=== PATIENT | male | born 1945 | race Caucasian/White ===

== ENCOUNTER 2018-09-13 14:30 | Inpatient (IN) ==
[2018-09-13] MEDS ORDERED: Naloxone 0.4 MG/ML INJ IVP PRN (17:47)
[2018-09-13] MEDS ORDERED: Ondansetron ODT 4 MG TAB.RAPDIS SL PRN (17:47)
--- NOTE | 2018-09-13 17:47 | Acute Care Surgery H&P ---
<Butch Kirkland - Last Filed: 09/13/18 17:55> Date of Encounter: 09/13/18 Time of Encounter: 17:56 Assessment and Plan (1) Perforation of sigmoid colon due to diverticulitis Current Visit: Yes Status: Acute -Patient is a 73-year-old male with no significant past medical history who was admitted from outside hospital for a perforated sigmoid diverticulitis -Patient reports significant abdominal pain starting Friday at 12 PM, but denies associated nausea, vomiting, diarrhea, constipation, melena, or hematochezia -Pain persisted through the weekend, but he does report improvement in his pain today prior to presenting to the emergency department -At outside hospital emergency department patient was hemodynamically stable with generally unremarkable lab workup: -Sodium 138, potassium 4.2, creatinine 1.06, LFTs within range, lactic acid 1.6, INR 1.1, WBC count 8.9, hemoglobin 16.2 -CT abdomen and pelvis with IV contrast suggested perforated sigmoid diverticulitis with abnormal fluid and gas collections in the right lower pelvis. There was also large free intraperitoneal air -Clinically however, the patient appears to be comfortable, he does have tenderness to palpation of his abdomen but he is able to cough without much discomfort. His vital signs and labs are not concerning at this time. -Discussed with patient and family member regarding surgical versus expectant management for his condition and the decision was made to initiate IV antibiotics and closely monitor patient's clinical status. -We will hold off surgery at this time due to lack of overtly concerning clinical findings on physical exam and lab workup -If patient were to have any change in his clinical status, we will reevaluate the need for surgery -We will repeat labs in the morning and repeat CT scan in a few days -We will start bowel rest and keep the patient NPO except ice chips -IVF and pain control -DVT prophylaxis History of Present Illness Chief complaint: abdominal pain HPI: Mr. Baez is a 73 year old male with no significant past medical history who presented to outside hospital with chief complaint of abdominal pain. This pain at began on 09/11/2018 at approximately 12 PM. Described as severe and generalized in nature. No associated nausea, vomiting, diarrhea, constipation, hematochezia, or melena. Patient reports that it was difficult for him to ambulate or attempt to lay down because the pain. This persisted through the next day, but did decrease on day of admission as he states that he was able to go on a morning walk with his . Due to the persistent abdominal pain patient decided to be evaluated at the emergency department as he was worried ab out appendicitis. Upon arrival to the emergency department patient was hemodynamically stable with vital signs: blood pressure 129/88, pulse 86, temp 98.3. His lab workup was generally unremarkable with normal electrolytes and LFTs and a lactic acid of 1.6. CBC was generally unremarkable with a white blood cell count of 8.93 and hemoglobin of 16.2. A CT abdomen and pelvis was performed with findings suggestive for perforated sigmoid diverticulitis with abnormal fluid and gas collection in the right lower pelvis with large free intraperitoneal air. Patient was offered transfer to [facility] but elected to be transferred to [facility] instead. Upon arrival patient is resting comfortably in bed, he is in no acute distress. There is tenderness to palpation of his abdomen with moderate pressure. He reports that his pain has slightly improved since receiving pain medications in the emergency department currently at a 3-4. CT images from outside hospital were uploaded to the PACS and reviewed by the acute care surgery team. Patient denies any fevers, chills, chest pain, shortness breath, abdominal pain, nausea, vomiting, diarrhea, hematochezia, melena, or any recent history of constipation. Medications and Allergies Allergy/AdvReac Type Severity Reaction Status Date / Time No Known Allergies Allergy Verified 09/13/18 17:26 Review of Systems All systems PM: The remainder of the systems were reviewed and are negative - Constitutional no chills, no fever(s) - Cardiovascular no chest pain - Respiratory no dyspnea - Gastrointestinal abdominal pain, no constipation, no diarrhea, no hematochezia, no melena, no nausea, no vomiting - Genitourinary no dysuria General Surgery Exam Reviewed from outside hospital - General physical appearance well developed, well nourished - Eyes PERRL, normal ocular movement - Neck trachea midline, no venous distension - Respiratory normal expansion, normal respiratory effort - Cardiovascular Cardiovascular exam: Present: RRR - Abdomen Abdomen general surgery: Present: tender, guarding Abdominal Tenderness: Present: diffusely - Integumentary Integumentary general surgery: Present: warm and dry - Musculoskeletal Present: normal posture - Psychiatric Psychiatric general surgery: Present: A&Ox3 Results - Labs All other labs normal. <Salvador,Mario M - Last Filed: 09/14/18 06:11> Date of Encounter: 09/13/18 History of Present Illness HPI: Mr. Baez is a 73 year old male Review of Systems All systems PM: The remainder of the systems were reviewed and are negative General Surgery Exam Initial Vital Signs Temp Pulse Resp BP Pulse Ox 98.0 F 66 16 135/88 98 09/13/18 16:45 09/13/18 16:45 09/13/18 16:45 09/13/18 16:45 09/13/18 16:45 Results - Labs 09/14/18 03:15 09/14/18 03:15 Abnormal lab results PT 14.1 Seconds (9.4-12.1) H 09/14/18 03:15 Phosphorus 2.4 mg/dL (2.7-4.5) L 09/14/18 03:15 Diabetes panel 09/14/18 Range/Units 03:15 Sodium 139 (136-145) mEq/L Potassium 4.0 (3.5-5.1) mEq/L Chloride 106 (98-107) mEq/L Carbon Dioxide 23 (23-29) mEq/L BUN 14 (8-23) mg/dL Creatinine 0.90 (0.70-1.30) mg/dL Glucose 92 (70-105) mg/dL Calcium 9.4 (8.6-10.3) mg/dL AST 15 (13-39) Units/L ALT 20 (7-52) Units/L Alkaline Phosphatase 68 (34-104) Units/L Albumin 3.8 (3.5-5.7) g/dL Calcium panel 09/14/18 Range/Units 03:15 Calcium 9.4 (8.6-10.3) mg/dL Phosphorus 2.4 L (2.7-4.5) mg/dL Albumin 3.8 (3.5-5.7) g/dL Pituitary panel 09/14/18 Range/Units 03:15 Sodium 139 (136-145) mEq/L Potassium 4.0 (3.5-5.1) mEq/L Chloride 106 (98-107) mEq/L Carbon Dioxide 23 (23-29) mEq/L BUN 14 (8-23) mg/dL Creatinine 0.90 (0.70-1.30) mg/dL Glucose 92 (70-105) mg/dL Calcium 9.4 (8.6-10.3) mg/dL Adrenal panel 09/14/18 Range/Units 03:15 Sodium 139 (136-145) mEq/L Potassium 4.0 (3.5-5.1) mEq/L Chloride 106 (98-107) mEq/L Carbon Dioxide 23 (23-29) mEq/L BUN 14 (8-23) mg/dL Creatinine 0.90 (0.70-1.30) mg/dL Glucose 92 (70-105) mg/dL Calcium 9.4 (8.6-10.3) mg/dL Total Bilirubin 1.0 (0.3-1.0) mg/dL AST 15 (13-39) Units/L ALT 20 (7-52) Units/L Alkaline Phosphatase 68 (34-104) Units/L Albumin 3.8 (3.5-5.7) g/dL All other labs normal. - Attending Attestation I examined this patient and my medical decision-making was reviewed with the Resident Physician. I agree with the documented findings, disposition and treatment plan as described except to the extent set forth below. I personally reviewed the above assessment and evaluation with the resident and was pleasant and evaluation. Patient states that he been having some right lower quadrant abdominal pain starting Friday afternoon. He denies any nausea or vomiting and states that the pain was intermittent in nature but somewhat sharp. The pain was severe on Friday but then started to decrease in severity. He was still able to tolerate eating foods and did notice some distention on Friday which level and did not increase over the next couple of days. In fact he states that the amount of distention seems to have decreased. He was having regular bowel movements without any rectal bleeding but because of this persistent right lower quadrant abdominal pain he presented to [facility] for further evaluation. Of note; he decided to walk with his for approximately a mile prior to presenting to the emergency room because of the persistent pain. CT scan evaluation at [facility] is demonstrated abundant free air and fluid in the pelvis concerning for perforation. The cause of the CT scan findings the physician at the presenting hospital felt that he would likely need an painter ski edge which was not present at their hospital and subsequently the patient was transferred to [facility]. The patient states that his pain currently is better but he did have pain medication prior to arrival. He denies any history of fever or chills and denies any nausea vomiting. He is tympanitic on examination has some mild to moderate pain to moderate palpation right lower quadrant but no rigidity or guarding. Laboratory studies from [facility] are normal clearing a normal count, hemoglobin, and platelets. His BMP is normal as well. Personally reviewed the CT scan images and report which is show an abundant amount of free air in the anterior abdomen and some diverticulosis with stranding in the sigmoid colon. There is an approximate 3 cm fluid collection with some air but no rind thickening of the rim. The pa tient denied or contrast. Given the patient's history of some severe pain on Friday but decreasing pain since then and still able to ambulate and walk without difficulty (he states actually that is ability to ambulate and walk improved around Friday into Friday) I think that this perforation did occur and then sealed in he no longer has an active perforation or spillage. I think it would be appropriate to give him a trial of IV antibiotics and close observation with an repeat interval CT scan to prove this. I explained to the patient we will follow his vital signs very carefully and his laboratory studies to ensure that he is improving as expected. The patient and family member agree with the above plan.
[2018-09-13] MEDS ORDERED: OXYCODONE Oral CONC 10 MG/0.5 ML ORAL.SYG SL PRN (17:49)
[2018-09-13] MEDS ORDERED: MORPHINE SUL Oral CONC 10 MG/0.5 ML ORAL.SYG SL PRN (17:50)
[2018-09-13] MEDS: 0.9 % Sodium Chloride 1,000 ML IVC SCH (20:38)
[2018-09-13] MEDS: MetroNIDAZOLE 500 MG/100 ML 500 MG/100 ML BAG IVPB SCH (20:38)
[2018-09-13] MEDS: *HR* Heparin 5,000 UNIT/ML VIAL SQ SCH (20:45)
[2018-09-13] MEDS: Levofloxacin 750 MG/150 ML 750 MG/150 ML BAG IVPB SCH (22:03)
[2018-09-14 03:56] LABS: Basophils % 0.4 %; Eosinophils # 0.4 K/mcL (0.0-0.6); Eosinophils % 5.3 %; Hematocrit 44.3 % (37.5-50.1); Hemoglobin 14.9 g/dL (12.9-16.9); Immature Granulocytes % 0.1 % (0-4); Lymphocytes # 1.3 K/mcL (0.6-4.6); Lymphocytes % 17.5 %; Mean Corpuscular HGB Conc 33.6 g/dL (31.6-35.5); Mean Corpuscular Hemoglobin 31.7 pg (28.0-33.3); Mean Corpuscular Volume 94.3 fL (83.0-100.0); Mean Platelet Volume 10.2 fL (9.4-12.4); Monocytes # 0.6 K/mcL (0.0-1.3); Monocytes % 7.7 %; Neutrophils # 5.1 K/mcL (1.6-8.9); Platelet Count 190 K/mcL (140-400)
[2018-09-14 04:01] LABS: INR 1.3; Prothrombin Time 14.1 Seconds (9.4-12.1)
[2018-09-14 04:14] LABS: Alanine Aminotransferase 20 Units/L (7-52); Albumin 3.8 g/dL (3.5-5.7); Albumin/Globulin Ratio 1.5 (1.1-2.2); Alkaline Phosphatase 68 Units/L (34-104); Aspartate Amino Transferase 15 Units/L (13-39); BUN/Creatinine Ratio 16 (6-26); Blood Urea Nitrogen 14 mg/dL (8-23); Calcium 9.4 mg/dL (8.6-10.3); Carbon Dioxide 23 mEq/L (23-29); Chloride 106 mEq/L (98-107); Globulin 2.6 g/dL (2.4-3.5); Glucose 92 mg/dL (70-105); Magnesium 1.9 mg/dL (1.6-2.6); Osmolality,Calculated 288 (280-300); Phosphorous 2.4 mg/dL (2.7-4.5); Sodium 139 mEq/L (136-145); Total Protein 6.4 g/dL (6.4-8.9); eGFR For Non-African Americans > 60 (> 60)
[2018-09-14] MEDS: 0.9 % Sodium Chloride 1,000 ML IVC SCH ×3 (04:15→21:46)
[2018-09-14] MEDS: MetroNIDAZOLE 500 MG/100 ML 500 MG/100 ML BAG IVPB SCH ×3 (04:15→20:20)
[2018-09-14] MEDS: *HR* Heparin 5,000 UNIT/ML VIAL SQ SCH ×3 (05:17→21:45)
--- NOTE | 2018-09-14 08:34 | AcuteCareSurgery Progress Note ---
<Butch Kirkland N - Last Filed: 09/14/18 08:32> Date of Encounter: 09/14/18 Time of Encounter: 08:32 - Assessment and Plan (1) Perforation of sigmoid colon due to diverticulitis Current Visit: Yes Status: Acute -Patient is a 73-year-old male with no significant past medical history who was admitted from outside hospital for a perforated sigmoid diverticulitis -Pain improved since admission, currently at a 1 out of 10. Patient did not require PRN pain medications overnight -Plan for repeat CT scan in a few days -We will start clear liquid diet today -Continue IV fluids and PRN pain medications -DVT prophylaxis Subjective Narrative: Patient seen and examined at bedside this morning. He reports minimal abdominal pain rating at a 1 out of 10. States that he is unable to get out of bed without difficulty and has not required any as needed pain medications overnight. Objective Vital Signs - Last 8 Hours Temp Pulse Resp BP Pulse Ox 09/14/18 06:59 98.3 F 71 16 124/82 96 09/14/18 04:00 98.4 F 68 16 124/72 96 Intake and Output 09/13/18 09/14/18 09/14/18 23:59 07:59 15:59 Intake Total 100 / 100 1250 / 1250 Balance 100 / 100 1250 / 1250 Intake: IV Fluids 100 / 100 1250 / 1250 0.9 % Sodium Chloride 1,000 ML 1000 / 1000 @ 125 mls/hr IVC .Q8H [facility] Rx#: [id number] Levaquin Premix 750mg/150 mL 150 / 150 750 mg In 150 ml @ 100 mls/hr IVPB Q24H [facility] Rx#:[id number] Flagyl Premix 500 MG/100 ML 500 100 / 100 100 / 100 mg In 100 ml @ 100 mls/hr IVPB Q8H [facility] Rx#:[id number] Oral 0 / 0 Other: Meal DINNER NPO Percent of Meal Consumed 0% Stool Size Moderate # Voids 1 1 # Bowel Movements 1 Weight 81.647 kg Blood Glucose* 83 - General physical appearance well developed, well nourished - Eyes PERRL, normal ocular movement - ENT normal pinna, normal nares - Neck Neck exam: trachea midline, no venous distension - Respiratory normal expansion, normal respiratory effort - Cardiovascular Cardiovascular exam: Present: RRR - Abdomen Abdomen: Present: bowel sounds present, soft, tender (Mild tenderness on moderate palpation) - Labs 09/14/18 03:15 09/14/18 03:15 Diabetes panel 09/14/18 Range/Units 03:15 Sodium 139 (136-145) mEq/L Potassium 4.0 (3.5-5.1) mEq/L Chloride 106 (98-107) mEq/L Carbon Dioxide 23 (23-29) mEq/L BUN 14 (8-23) mg/dL Creatinine 0.90 (0.70-1.30) mg/dL Glucose 92 (70-105) mg/dL Calcium 9.4 (8.6-10.3) mg/dL AST 15 (13-39) Units/L ALT 20 (7-52) Units/L Alkaline Phosphatase 68 (34-104) Units/L Albumin 3.8 (3.5-5.7) g/dL Calcium panel 09/14/18 Range/Units 03:15 Calcium 9.4 (8.6-10.3) mg/dL Phosphorus 2.4 L (2.7-4.5) mg/dL Albumin 3.8 (3.5-5.7) g/dL Pituitary panel 09/14/18 Range/Units 03:15 Sodium 139 (136-145) mEq/L Potassium 4.0 (3.5-5.1) mEq/L Chloride 106 (98-107) mEq/L Carbon Dioxide 23 (23-29) mEq/L BUN 14 (8-23) mg/dL Creatinine 0.90 (0.70-1.30) mg/dL Glucose 92 (70-105) mg/dL Calcium 9.4 (8.6-10.3) mg/dL Adrenal panel 09/14/18 Range/Units 03:15 Sodium 139 (136-145) mEq/L Potassium 4.0 (3.5-5.1) mEq/L Chloride 106 (98-107) mEq/L Carbon Dioxide 23 (23-29) mEq/L BUN 14 (8-23) mg/dL Creatinine 0.90 (0.70-1.30) mg/dL Glucose 92 (70-105) mg/dL Calcium 9.4 (8.6-10.3) mg/dL Total Bilirubin 1.0 (0.3-1.0) mg/dL AST 15 (13-39) Units/L ALT 20 (7-52) Units/L Alkaline Phosphatase 68 (34-104) Units/L Albumin 3.8 (3.5-5.7) g/dL <Min Hancock - Last Filed: 09/14/18 15:22> Date of Encounter: 09/14/18 Objective Vital Signs - Last 8 Hours Temp Pulse Resp BP Pulse Ox 09/14/18 14:05 98.1 F 83 16 141/90 98 09/14/18 11:05 98.3 F 72 16 118/77 96 09/14/18 08:30 96 Intake and Output 09/13/18 09/14/18 09/14/18 23:59 07:59 15:59 Intake Total 100 / 100 1250 / 1250 Balance 100 / 100 1250 / 1250 Intake: IV Fluids 100 / 100 1250 / 1250 0.9 % Sodium Chloride 1,000 ML 1000 / 1000 @ 125 mls/hr IVC .Q8H [facility] Rx#: [id number] Levaquin Premix 750mg/150 mL 150 / 150 750 mg In 150 ml @ 100 mls/hr IVPB Q24H [facility] Rx#:[id number] Flagyl Premix 500 MG/100 ML 500 100 / 100 100 / 100 mg In 100 ml @ 100 mls/hr IVPB Q8H [facility] Rx#:[id number] Oral 0 / 0 Other: Meal DINNER NPO Percent of Meal Consumed 0% Stool Size Moderate # Voids 1 1 1 # Bowel Movements 1 1 Weight 81.647 kg Blood Glucose* 83 83 - Labs 09/14/18 03:15 09/14/18 03:15 Diabetes panel 09/14/18 Range/Units 03:15 Sodium 139 (136-145) mEq/L Potassium 4.0 (3.5-5.1) mEq/L Chloride 106 (98-107) mEq/L Carbon Dioxide 23 (23-29) mEq/L BUN 14 (8-23) mg/dL Creatinine 0.90 (0.70-1.30) mg/dL Glucose 92 (70-105) mg/dL Calcium 9.4 (8.6-10.3) mg/dL AST 15 (13-39) Units/L ALT 20 (7-52) Units/L Alkaline Phosphatase 68 (34-104) Units/L Albumin 3.8 (3.5-5.7) g/dL Calcium panel 09/14/18 Range/Units 03:15 Calcium 9.4 (8.6-10.3) mg/dL Phosphorus 2.4 L (2.7-4.5) mg/dL Albumin 3.8 (3.5-5.7) g/dL Pituitary panel 09/14/18 Range/Units 03:15 Sodium 139 (136-145) mEq/L Potassium 4.0 (3.5-5.1) mEq/L Chloride 106 (98-107) mEq/L Carbon Dioxide 23 (23-29) mEq/L BUN 14 (8-23) mg/dL Creatinine 0.90 (0.70-1.30) mg/dL Glucose 92 (70-105) mg/dL Calcium 9.4 (8.6-10.3) mg/dL Adrenal panel 09/14/18 Range/Units 03:15 Sodium 139 (136-145) mEq/L Potassium 4.0 (3.5-5.1) mEq/L Chloride 106 (98-107) mEq/L Carbon Dioxide 23 (23-29) mEq/L BUN 14 (8-23) mg/dL Creatinine 0.90 (0.70-1.30) mg/dL Glucose 92 (70-105) mg/dL Calcium 9.4 (8.6-10.3) mg/dL Total Bilirubin 1.0 (0.3-1.0) mg/dL AST 15 (13-39) Units/L ALT 20 (7-52) Units/L Alkaline Phosphatase 68 (34-104) Units/L Albumin 3.8 (3.5-5.7) g/dL - Attending Attestation I examined this patient and my medical decision-making was reviewed with the Resident Physician. I agree with the documented findings, disposition and treatment plan as described except to the extent set forth below. The patient is seen and evaluated on morning rounds with the acute care surgery team. His abdominal examination is negative. He has good bowel sounds. We will advance him to clear liquids. He is not taking any pain medicine. He does have a fair amount of free air from what appears to be perforated diverticular disease. Continue IV antibiotic. We will plan follow-up CAT scan of the abdomen on Friday Min Hancock MD FACS
[2018-09-14] MEDS: Levofloxacin 750 MG/150 ML 750 MG/150 ML BAG IVPB SCH (20:20)
[2018-09-15] MEDS: MetroNIDAZOLE 500 MG/100 ML 500 MG/100 ML BAG IVPB SCH ×3 (05:16→20:14)
[2018-09-15] MEDS: *HR* Heparin 5,000 UNIT/ML VIAL SQ SCH ×3 (05:17→21:10)
[2018-09-15] MEDS ORDERED: Isovue-370 500 ML BOTTLE IVP ONE (08:00)
--- NOTE | 2018-09-15 08:07 | AcuteCareSurgery Progress Note ---
<Butch Kirkland N - Last Filed: 09/15/18 08:03> Date of Encounter: 09/15/18 Time of Encounter: 08:04 - Assessment and Plan (1) Perforation of sigmoid colon due to diverticulitis Current Visit: Yes Status: Acute -Patient is a 73-year-old male with no significant past medical history who was admitted from outside hospital for a perforated sigmoid diverticulitis -Pain improved since admission, currently at a 0 out of 10 -Reobtain CT scan with IV and oral contrast today. -Continue clear liquid diet -Continue IV fluids, IV antibiotics, and PRN pain medications -DVT prophylaxis Subjective Narrative: Patient seen and examined at bedside this morning. He denies any complaints. Abdomen is benign and nontender. Patient reports passing gas and has normal bowel movements. He has been able to get out of bed and ambulate without difficulty. Tolerating his clear liquid diet. Objective Vital Signs - Last 8 Hours Temp Pulse Resp BP Pulse Ox 09/15/18 07:00 98.2 F 66 17 166/97 98 09/15/18 04:15 98.4 F 59 14 145/80 96 Intake and Output 09/14/18 09/15/18 09/15/18 23:59 07:59 15:59 Intake Total 1610 / 2960 100 / 100 Balance 1610 / 2960 100 / 100 Intake: IV Fluids 1250 / 2600 100 / 100 0.9 % Sodium Chloride 1,000 ML 1000 / 1000 @ 100 mls/hr IVC .Q10H [facility] Rx#: [id number] Levaquin Premix 750mg/150 mL 150 / 300 750 mg In 150 ml @ 100 mls/hr IVPB Q24H [facility] Rx#:[id number] Flagyl Premix 500 MG/100 ML 500 100 / 300 100 / 100 mg In 100 ml @ 100 mls/hr IVPB Q8H [facility] Rx#:[id number] Oral 360 / 360 0 / 0 Other: Meal CLLEARS # Voids 1 Weight 89.7 kg Patient Weight 09/15/18 23:59 Weight 89.7 kg - General physical appearance well developed, well nourished - Eyes PERRL, normal ocular movement - ENT normal pinna, normal nares - Neck Neck exam: trachea midline, no venous distension - Respiratory normal expansion, normal respiratory effort - Cardiovascular Cardiovascular exam: Present: RRR - Abdomen Abdomen: Present: bowel sounds present, soft, non tender - Labs 09/14/18 03:15 09/14/18 03:15 Consult Discharge Plan - Plan Referrals: NONE,PCP [Primary Care Provider] - <Gasper MartínezMadina - Last Filed: 09/15/18 11:08> Date of Encounter: 09/15/18 Objective Vital Signs - Last 8 Hours Temp Pulse Resp BP Pulse Ox 09/15/18 07:00 98.2 F 66 17 166/97 98 09/15/18 04:15 98.4 F 59 14 145/80 96 Intake and Output 09/14/18 09/15/18 09/15/18 23:59 07:59 15:59 Intake Total 1610 / 2960 100 / 100 0 / 100 Balance 1610 / 2960 100 / 100 0 / 100 Intake: IV Fluids 1250 / 2600 100 / 100 0.9 % Sodium Chloride 1,000 ML 1000 / 1000 @ 100 mls/hr IVC .Q10H [facility] Rx#: [id number] Levaquin Premix 750mg/150 mL 150 / 300 750 mg In 150 ml @ 100 mls/hr IVPB Q24H [facility] Rx#:[id number] Flagyl Premix 500 MG/100 ML 500 100 / 300 100 / 100 mg In 100 ml @ 100 mls/hr IVPB Q8H [facility] Rx#:[id number] Oral 360 / 360 0 / 0 0 / 0 Other: Meal CLLEARS NPO Percent of Meal Consumed 0% # Voids 1 Weight 89.7 kg Patient Weight 09/15/18 23:59 Weight 89.7 kg - Labs 09/14/18 03:15 09/14/18 03:15 - Attending Attestation I examined this patient and my medical decision-making was reviewed with the Resident Physician. I agree with the documented findings, disposition and t reatment plan as described except to the extent set forth below.
[2018-09-15] MEDS ORDERED: Isovue-370 500 ML BOTTLE PO ONE (08:11)
[2018-09-15] MEDS: 0.9 % Sodium Chloride 1,000 ML IVC SCH (12:00)
--- NOTE | 2018-09-15 19:15 | Acute Care Surgery Event Note ---
Date of Encounter: 09/15/18 Time of Encounter: 19:15 ABD/Pelvis CT from today reveals stable findings c/w perforated sigmoid diverticulitis. Clinically pt is much improved and tolerating clear liquids. Will advance to full liquid diet. no leukocytosis or fever. CBC in am.
[2018-09-15] MEDS: Levofloxacin 750 MG/150 ML 750 MG/150 ML BAG IVPB SCH (21:09)
[2018-09-16] MEDS: MetroNIDAZOLE 500 MG/100 ML 500 MG/100 ML BAG IVPB SCH ×2 (04:28→11:43)
[2018-09-16 04:38] LABS: Basophils % 0.6 %; Eosinophils # 0.4 K/mcL (0.0-0.6); Eosinophils % 7.7 %; Hematocrit 41.1 % (37.5-50.1); Hemoglobin 14.2 g/dL (12.9-16.9); Immature Granulocytes % 0.4 % (0-4); Lymphocytes % 20.4 %; Mean Corpuscular HGB Conc 34.5 g/dL (31.6-35.5); Mean Corpuscular Hemoglobin 31.9 pg (28.0-33.3); Mean Corpuscular Volume 92.4 fL (83.0-100.0); Mean Platelet Volume 9.8 fL (9.4-12.4); Monocytes # 0.4 K/mcL (0.0-1.3); Monocytes % 8.8 %; Neutrophils # 2.9 K/mcL (1.6-8.9); Platelet Count 201 K/mcL (140-400); Red Blood Count 4.45 M/mcL (4.19-5.50); Red Cell Distribution Width 13.8 % (11.5-14.5); Segmented Neutrophils % 62.1 %
[2018-09-16] MEDS: *HR* Heparin 5,000 UNIT/ML VIAL SQ SCH (06:05)
--- NOTE | 2018-09-16 07:46 | Discharge Summary ---
<Butch Kirkland Crispin - Last Filed: 09/16/18 08:44> - NOTES TO OUTPATIENT PROVIDER Notes to Outpatient Provider: Patient is a 73-year-old male with no significant past medical history who was admitted from outside hospital for perforated sigmoid diverticulitis. On CT scan patient had abnormal fluid and gas collections in the pelvis with large free intraperitoneal air. Clinically however, patient was resting comfortably and his abdominal exam was mostly benign. Decision was made to conservatively treat with IV antibiotics and reimage in 3 days. During this time patient improved clinically and had no abdominal pain, nausea, vomiting, tenderness, or any bowel or bladder changes. Repeat CT scan redemonstrated air as stable and formation of a small abscess measuring 2.7 x 3.5 centimeters which is too small for surgical drainage. Patient was discharged to home in stable condition with follow-up outpatient with acute care surgery for colonoscopy in 4 weeks. Patient will be discharged with 7 days of Augmentin 875 mg by mouth twice a day. Patient also receive referral to establish with a PCP as he has not seen a physician in several years. Date of Encounter: 09/16/18 Time of Encounter: 08:36 - Discharge Diagnosis (1) Perforation of sigmoid colon due to diverticulitis Priority: Primary Status: Acute General Surgery Exam Initial Vital Signs Temp Pulse Resp BP Pulse Ox 98.0 F 66 16 135/88 98 09/13/18 16:45 09/13/18 16:45 09/13/18 16:45 09/13/18 16:45 09/13/18 16:45 - General physical appearance well developed, well nourished - Eyes PERRL, normal ocular movement - ENT normal pinna, normal nares - Neck trachea midline, no venous distension - Respiratory normal expansion, normal respiratory effort - Cardiovascular Cardiovascular exam: Present: RRR - Abdomen Abdomen general surgery: Present: bowel sounds present, soft, non tender - Integumentary Integumentary general surgery: Present: warm and dry - Neurologic Present: CN 2-12 grossly intact - Musculoskeletal Present: normal posture - Psychiatric Psychiatric general surgery: Present: A&Ox3 - Hospital Course Hospital course: Mr. Baez is a 73-year-old male with no significant past medical history who was admitted from outside hospital for perforated sigmoid diverticulitis. On CT scan patient had abnormal fluid and gas collections in the pelvis with large free intraperitoneal air. Clinically however, patient was resting comfortably and his abdominal exam was mostly benign. Decision was made to conservatively treat with IV antibiotics and re-image in 3 days. During this time patient improved clinically and had no abdominal pain, nausea, vomiting, tenderness, or any bowel or bladder changes. Repeat CT scan redemonstrated air as stable and formation of a small abscess measuring 2.7 x 3.5 centimeters which was too small for surgical drainage. Patient was discharged to home in stable condition on a low residue diet with follow-up outpatient with acute care surgery for colonoscopy in 4 weeks. Patient will be discharged with 7 days of Augmentin 875 mg by mouth twice a day. Patient also receive referral to establish with a PCP as he has not seen a physician in several years. - Time Spent with Patient Total time spent providing and/or coordinating discharge services: - Discharge Medications Prescriptions: New Amoxicillin/Clavulanate [Augmentin] 875 mg PO BIDWM 7 Days #14 tablet Continued Omeprazole Magnesium [Prilosec Otc] 20 mg PO DAILY Home Medications: Omeprazole Magnesium [Prilosec Otc] 20 mg PO DAILY 09/14/18 [History] Amoxicillin/Clavulanate [Augmentin] 875 mg PO BIDWM 7 Days #14 tablet 09/16/18 [Rx] Allergies/Adverse Reactions: Allergy/AdvReac Type Severity Reaction Status Date / Time No Known Allergies Allergy Verified 09/13/18 17:26 Date of admission: 09/14/18 09:17 Primary care physician: PCP NONE Consults: 09/15/18 16:25 Consult to Nutrition [CONS] Routine Comment: diverticulitis diet Consulting Provider: NUTRITION Reason for Dietary Consult: Diet Education Discharging clinician: Butch Kirkland Anticipated date of discharge: 09/16/18 Labs on day of discharge: Labs from last 24 hours 09/16/18 09/14/18 04:04 12:22 WBC 4.7 RBC 4.45 Hgb 14.2 Hct 41.1 MCV 92.4 MCH 31.9 MCHC 34.5 RDW 13.8 Plt Count 201 MPV 9.8 Immature Gran % 0.4 Seg Neutrophils % 62.1 Lymphocytes % 20.4 Monocytes % 8.8 Eosinophils % 7.7 Basophils % 0.6 Neutrophils # 2.9 Lymphocytes # 1.0 Monocytes # 0.4 Eosinophils # 0.4 Basophils # 0.0 POC Glucose 83 - Impressions ITS Impressions Abdomen/Pelvis CT 09/15/18 10:30 IMPRESSION: Stable exam from 09/13/2018 with findings compatible with perforated sigmoid diverticulitis to include stable appearance to the sigmoid colon itself, stable amount of intraperitoneal free air and stable focal fluid collection with internal gas adjacent to the medial aspect of the mid to distal sigmoid colon concerning for abscess. No extraluminal oral contrast identified and no evidence for bowel obstruction. No new or worsening acute intra-abdominal process. D/ / 09/15/2018 11:43:02 Shahram Young MD / Verónica Parekh Interpreting Provider: Shahram Young MD - Patient Status Disposition: Home, Self-Care Condition: Good Overall status at discharge: patient is progressing back to baseline - Discharge Instructions Instructions: Diverticulitis (DC), Diverticulitis Diet (GEN), Perforated Bowel (DC) Follow Up With: Goran Sesay MD [Non-Partnered Physician] - 10/19/18 11:00 am (4 weeks to schedule outpatient colonoscopy) Ronnie Dowling DO [Partnered Physician] - 10/01/18 10:30 am <Min Hancock - Last Filed: 09/16/18 12:10> Orders not resulted at time of discharge: Pending orders 09/17/18 04:00 CBC [Complete Blood Count] [HEME] AM 0400 Date of Encounter: 09/16/18 General Surgery Exam Initial Vital Signs Temp Pulse Resp BP Pulse Ox 98.0 F 66 16 135/88 98 09/13/18 16:45 09/13/18 16:45 09/13/18 16:45 09/13/18 16:45 09/13/18 16:45 - Hospital Course Hospital course: Mr. Baez is a 73 year old male - Time Spent with Patient Total time spent providing and/or coordinating discharge services: Date of admission: 09/14/18 09:17 Primary care physician: PCP NONE Consults: 09/15/18 16:25 Consult to Nutrition [CONS] Routine Comment: diverticulitis diet Consulting Provider: NUTRITION Reason for Dietary Consult: Diet Education Labs on day of discharge: Labs from last 24 hours 09/16/18 04:04 WBC 4.7 RBC 4.45 Hgb 14.2 Hct 41.1 MCV 92.4 MCH 31.9 MCHC 34.5 RDW 13.8 Plt Count 201 MPV 9.8 Immature Gran % 0.4 Seg Neutrophils % 62.1 Lymphocytes % 20.4 Monocytes % 8.8 Eosinophils % 7.7 Basophils % 0.6 Neutrophils # 2.9 Lymphocytes # 1.0 Monocytes # 0.4 Eosinophils # 0.4 Basophils # 0.0 - Impressions ITS Impressions Abdomen/Pelvis CT 09/15/18 10:30 IMPRESSION: Stable exam from 09/13/2018 with findings compatible with perforated sigmoid diverticulitis to include stable appearance to the sigmoid colon itself, stable amount of intraperitoneal free air and stable focal fluid collection with internal gas adjacent to the medial aspect of the mid to distal sigmoid colon concerning for abscess. No extraluminal oral contrast identified and no evidence for bowel obstruction. No new or worsening acute intra-abdominal process. D/ / 09/15/2018 11:43:02 Shahram Young MD / Verónica Parekh Interpreting Provider: Shahram Young MD - Attending Attestation I examined this patient and my medical decision-making was reviewed with the Resident Physician. I agree with the documented findings, disposition and treatment plan as described except to the extent set forth below. The patient is seen and evaluated on morning rounds with the acute care surgery team. His abdominal examination is completely negative. We will try him on dietary trial today if he tolerates regular diet can be discharged home to continue oral antibiotics. Follow-up acute care surgery clinic in 1 week Min Hancock MD FACS
[2018-09-16 10:34] VITALS: BP 121/80
== END 2018-09-16 14:50 | disposition home or self-care (01) | DRG 392 ==
LOC: 3ANU
PROVIDERS: ADMIT Surgery; ATTEND Surgery